=== PATIENT | female | born 1945 | race Caucasian/White ===

== ENCOUNTER 2020-06-22 09:56 | Emergency (ER) | payer OTHER ==
--- NOTE | 2020-06-22 10:20 | TELE ---
HPI - General Reason For Visit: COVID 19 TEST Time Seen by Provider: 06/22/20 10:18 History Source: Patient Exam Limitations: Clinical Condition - History of Present Illness Associated Symptoms: reports: denies symptoms 06/22/20 10:18 Patient with no significant past medical history presenting to virtual urgent care for Covid testing due to having cataract surgery in 4 days symptoms advised to have a negative Covid test before surgery. Patient denies fever, chills, shortness of breath. Patient denies any symptoms at this time. Denies any other complaints Review of Systems - Review of Systems Able to Perform ROS?: Yes Limited Japanese proficient: No Constitutional: No: Chills, Fever, Malaise HEENTM: No: Symptoms Reported, See HPI, Eye Pain, Blurred Vision, Tearing, Recent change in vision, Double Vision, Cataracts, Ear Pain, Ocular Prothesis, Ear Discharge, Nose Pain, Nose Congestion, Tinnitus, Nose Bleeding, Hearing Loss, Throat Pain, Throat Swelling, Mouth Pain, Dental Problems, Difficulty Swallowing, Mouth Swelling, Other Respiratory: No: Symptoms reported, See HPI, Cough, Orthopnea, Shortness of Breath, SOB with Exertion, SOB at Rest, Stridor, Wheezing, Productive cough, Hemoptysis, Other Cardiac (ROS): No: Symptoms Reported, See HPI, Chest Pain, Edema, Irregular Heart Rate, Lightheadedness, Palpitations, Syncope, Chest Tightness, Other ABD/GI: No: Symptoms Reported, Nausea, Vomiting Integumentary: No: Symptoms Reported Neurological: No: Symptoms reported All Other Systems: Reviewed and Negative *Physical Exam - Physical Exam General Appearance: Yes: Nourished, Appropriately Dressed. No: Apparent Distress HEENT: positive: Normal ENT Inspection Respiratory/Chest: negative: Respiratory Distress, Accessory Muscle Use Musculoskeletal: positive: Normal Inspection Extremity: positive: Normal Inspection, Normal Range of Motion Integumentary: positive: Normal Color Neurologic: positive: Fully Oriented, Alert, Normal Mood/Affect, Normal Response - Medical Decision Making 06/22/20 10:19 Patient with no significant past medical history presenting to [facility] urgent care for Covid testing due to having cataract surgery in 4 days symptoms advised to have a negative Covid test before surgery. Patient denies fever, chills, shortness of breath. Patient denies any symptoms at this time. Denies any other complaints Patient is symptomatic at this time. Covid test ordered as per patient's request. Patient to go to [facility] drive-through testing center today for Covid testing. Patient stable for discharge Discharge Diagnosis at time of Disposition: Counseled about COVID-19 virus infection - Referrals Follow-up Referral(s): Piter Angel [Primary Care Provider] - - Patient Instructions - Discharge Disposition: HOME Condition at time of Disposition: Stable
== END 2020-06-22 10:20 | disposition home or self-care (01) ==
LOC: JVIRT 09:56
DX: Z03.818 Encounter for observation for suspected exposure to other biological agents ruled out (principal)
CPT/HCPCS: C9803; Q3014-GT; U0003

== ENCOUNTER 2025-05-23 10:57 | Emergency (ER) | payer OTHER ==
[2025-05-23 11:05] VITALS: RESP 16; BMI 27.6
[2025-05-23] MEDS ORDERED: ACETAMINOPHEN INJECTION 100 ML ONE (12:35)
[2025-05-23] MEDS ORDERED: METOCLOPRAMIDE HCL INJECTION 10 MG/2 ML VIAL ONE (12:35)
[2025-05-23 12:53] LABS: MCHC 34.7 g/dl (32.2-35.5); MEAN CELL VOLUME 82.5 fl (79.4-94.8); MEAN PLT VOLUME 8.7 fl (9.4-12.3); RDW 12.8 % (12.4-16.6)
[2025-05-23 13:31] LABS: GLUCOSE,RANDOM 103.0 mg/dL (74-106); TOT PROT 6.8 g/dl (6.4-8.2)
[2025-05-23 13:32] LABS: CO2 28.0 mmol/L (21-32)
[2025-05-23 13:34] LABS: ALK PHOS 73.0 U/L (40-150)
[2025-05-23 13:36] LABS: SGPT/ALT 28.0 U/L (0-55)
[2025-05-23 13:37] LABS: CREATININE 0.73 mg/dL (0.55-1.3); SGOT/AST 31.0 U/L (5-34)
[2025-05-23] MEDS: SODIUM CHLORIDE 0.9% 500 ML INFUS.BAG IV ONE (14:22)
[2025-05-23] MEDS: ACETAMINOPHEN 1000 MG/100 ML BAG IVPB ONE (14:23)
[2025-05-23] MEDS: METOCLOPRAMIDE HCL INJECTION 10 MG/2 ML VIAL IVPUSH ONE (14:23)
[2025-05-23 14:27] LABS: HCV DIAGNOSTIC IN-HOUSE W/RFLX NON-REACTIVE (NONREACTIVE); HIV INTERPRETATION NEGATIVE (NEGATIVE)
[2025-05-23 15:52] VITALS: BP 190/89; PULSE 78; TEMP 98.2
== END 2025-05-23 16:08 | disposition home or self-care (01) ==
LOC: JER 10:57
PROC: 3E033NZ Introduction of Analgesics, Hypnotics, Sedatives into Peripheral Vein, Percutaneous Approach (ICD-10-PCS; principal; 2025-05-23)
PROC: 3E033GC Introduction of Other Therapeutic Substance into Peripheral Vein, Percutaneous Approach (ICD-10-PCS; 2025-05-23)
PROC: 3E033GC Introduction of Other Therapeutic Substance into Peripheral Vein, Percutaneous Approach (ICD-10-PCS; 2025-05-23)
DX: I16.0 Hypertensive urgency (principal); I10 Essential (primary) hypertension; R51.9 Headache, unspecified; R11.0 Nausea
CPT/HCPCS: 36415; 70450-TC; 80053; 85027; 86803; 87389; 93005; 93010; 96374; 96375; 99285-25